=== PATIENT | female | born 1960 | race African-American/Black ===

== ENCOUNTER 2020-10-08 14:36 | Emergency (ER) | payer MEDICARE ==
[2020-10-08] MEDS ORDERED: Dextrose 50% Abboject 50 ML SYRINGE ONE (14:43)
[2020-10-08 15:09] LABS: #Eosinphils 0.1 thou/uL (0.0-0.7); #Lymphocytes 1.6 thou/uL (1.20-3.40); #Monocytes 0.7 thou/uL (0.11-0.59); #Neutrophils 8.2 thou/uL (1.40-6.50); %Basophils 0.2 % (0.0-1.0); %Eosinophils 0.8 % (0.0-10.0); %Lymphocytes 15.3 % (21.0-51.0); %Monocytes 6.2 % (0.0-10.0); %Neutrophils 77.5 % (42.0-75.0); Hemoglobin 11.4 g/dL (12.0-16.0); Mean Corpuscular HGB CONC 31.2 g/dL (32.0-36.0); Mean Corpuscular Hemoglobin 26.8 pg (27.0-31.0); Mean Platelet Volume 8.3 fL (7.4-10.4); Platelet Count 270 thou/uL (130-400); RBC Distribution Width 19.5 % (11.5-14.5); Red Blood Cell (RBC) Count 4.24 mill/uL (4.20-5.40); White Blood Cell (WBC) Count 10.6 thou/uL (4.8-10.8)
[2020-10-08 15:25] LABS: ALT (SGPT) 24 U/L (8-55); AST (SGOT) 29 U/L (5-34); Albumin 3.9 g/dL (3.4-4.8); Alkaline Phosphatase 75 U/L (40-110); Anion Gap 12 mmol/L (10-20); BUN (Urea Nitrogen) 25 mg/dL (9.8-20.1); Bilirubin, Total 0.5 mg/dL (0.2-1.2); Calc. Creatinine Clearance 0 mL/min (70-130); Calcium 9.5 mg/dL (7.8-10.44); Carbon Dioxide 32 mmol/L (23-31); Chloride 102 mmol/L (98-107); Globulin 3.4 g/dL (2.4-3.5); Glucose 195 mg/dL (80-115); Potassium 3.4 mmol/L (3.5-5.1); Protein, Total 7.3 g/dL (5.8-8.1); Sodium 143 mmol/L (136-145)
[2020-10-08] MEDS ORDERED: Morphine 4 MG/ML VIAL ONE (16:15)
[2020-10-08] MEDS ORDERED: Ondansetron PF 4 MG/2 ML Vial ONE (16:15)
[2020-10-08 16:40] LABS: Bilirubin Negative (Negative); Blood, Urine 1+ (Negative); Clarity Turbid (Clear); Glucose, Urine (Dipstick) 50 mg/dL (Negative); Ketone, Urine Negative (Negative); Leukocyte Negative Leu/uL (Negative); Nitrite Negative (Negative); Protein, Urine (Dipstick) 100 mg/dL (Neg-Trace); Specific Gravity, Urine 1.008 (1.002-1.036); Squamous Epithelial 0-3 HPF (0-3); Urobilinogen Normal mg/dL (Less than 2); WBC/HPF 0-3 HPF (0-3)
[2020-10-08 16:41] LABS: Bacteria/HPF Rare-Few HPF (None Seen)
== END 2020-10-08 17:49 | disposition home or self-care (01) ==
LOC: ERS 14:36
DX: E11.649 Type 2 diabetes mellitus with hypoglycemia without coma (principal); I11.0 Hypertensive heart disease with heart failure; I50.9 Heart failure, unspecified; E78.5 Hyperlipidemia, unspecified; Z87.891 Personal history of nicotine dependence; Z79.4 Long term (current) use of insulin; Z79.899 Other long term (current) drug therapy
CPT/HCPCS: 36416; 70450; 80053; 81003; 81015; 84443; 85025; 93005; 96374; 96375; J2270; J2405

== ENCOUNTER 2021-07-01 15:01 | Emergency (ER) | payer MEDICARE ==
[2021-07-01] MEDS ORDERED: traMADol HCl 50 MG TAB ONE (16:19)
== END 2021-07-01 18:00 | disposition home or self-care (01) ==
LOC: ERS 15:01
DX: R07.81 Pleurodynia (principal); I11.0 Hypertensive heart disease with heart failure; I50.9 Heart failure, unspecified; E11.9 Type 2 diabetes mellitus without complications; E78.5 Hyperlipidemia, unspecified; Z87.891 Personal history of nicotine dependence; Z79.899 Other long term (current) drug therapy
CPT/HCPCS: 36416

== ENCOUNTER 2022-02-11 20:51 | Inpatient (IN) | payer MEDICARE ==
[2022-02-11] MEDS ORDERED: Metoclopramide HCl 10 MG/2 ML VIAL ONE (21:53)
[2022-02-11] MEDS ORDERED: diphenhydrAMINE 25 MG CAP ONE (21:53)
[2022-02-11] MEDS ORDERED: diphenhydrAMINE 12.5 MG/5 ML UDCUP ONE (22:02)
[2022-02-11] MEDS ORDERED: diphenhydrAMINE 50 MG/ML VIAL ONE (22:03)
[2022-02-11 22:11] LABS: #Lymphocytes 2.1 thou/uL (1.20-3.40); #Monocytes 0.7 thou/uL (0.11-0.59); #Neutrophils 6.6 thou/uL (1.40-6.50); %Eosinophils 0.2 % (0.0-10.0); %Lymphocytes 22.4 % (21.0-51.0); %Monocytes 7.3 % (0.0-10.0); %Neutrophils 70.2 % (42.0-75.0); Hemoglobin 14.5 g/dL (12.0-16.0); Mean Corpuscular Hemoglobin 30.7 pg (27.0-31.0); Mean Platelet Volume 7.1 fL (7.4-10.4); Platelet Count 328 thou/uL (130-400); RBC Distribution Width 14.2 % (11.5-14.5); Red Blood Cell (RBC) Count 4.73 mill/uL (4.20-5.40); White Blood Cell (WBC) Count 9.4 thou/uL (4.8-10.8)
[2022-02-11 22:21] LABS: ALT (SGPT) 33 U/L (8-55); AST (SGOT) 43 U/L (5-34); Alkaline Phosphatase 99 U/L (40-110); Anion Gap 22 mmol/L (10-20); BUN (Urea Nitrogen) 65 mg/dL (9.8-20.1); Bilirubin, Total 0.7 mg/dL (0.2-1.2); Calc. Creatinine Clearance 0 mL/min (70-130); Calcium 9.7 mg/dL (7.8-10.44); Carbon Dioxide 27 mmol/L (23-31); Chloride 91 mmol/L (98-107); Estimated GFR 11; Globulin 3.1 g/dL (2.4-3.5); Glucose 278 mg/dL (80-115); Lipase 14 U/L (8-78); Potassium 3.7 mmol/L (3.5-5.1); Protein, Total 7.1 g/dL (5.8-8.1); Sodium 136 mmol/L (136-145)
[2022-02-11 22:45] LABS: CKMB 7.3 ng/mL (0-6.6)
[2022-02-11 23:22] LABS: SARS-CoV-2 NAA Rapid Test Not Detected (NotDetected)
[2022-02-11] MEDS ORDERED: Aspirin Chewable 81 MG TAB ONE ×2 (23:41→23:44)
[2022-02-12] MEDS ORDERED: Sodium Chloride 0.9% 1,000 ML IV SCH ×2 (00:30→02:30)
[2022-02-12 01:39] LABS: Troponin I 0.068 ng/mL (< 0.028)
[2022-02-12 04:38] LABS: Troponin I 0.084 ng/mL (< 0.028)
[2022-02-12 05:07] VITALS: BMI 50.5
[2022-02-12 07:13] LABS: Anion Gap 20 mmol/L (10-20); BUN (Urea Nitrogen) 64 mg/dL (9.8-20.1); Calc. Creatinine Clearance 29 mL/min (70-130); Calcium 9.3 mg/dL (7.8-10.44); Carbon Dioxide 25 mmol/L (23-31); Chloride 92 mmol/L (98-107); Estimated GFR 12; Glucose 424 mg/dL (80-115); Potassium 3.7 mmol/L (3.5-5.1); Sodium 133 mmol/L (136-145)
[2022-02-12] MEDS ORDERED: Dextrose 5% in Water 1,000 ML IV PRN (08:47)
[2022-02-12] MEDS ORDERED: HumaLOG 300 UNITS/3 ML VIAL SC PRN ×2 (08:47)
[2022-02-12] MEDS ORDERED: Dextrose 50% Abboject 50 ML SYRINGE SLOW IVP PRN (08:47)
[2022-02-12] MEDS ORDERED: Ondansetron PF 4 MG/2 ML Vial IVP PRN (08:52)
[2022-02-12] MEDS ORDERED: Senokot S 8.6-50 MG TAB PO PRN (08:52)
[2022-02-12] MEDS ORDERED: Nitroglycerin 0.4 MG TAB (25 Tab Bottle) SL PRN (08:55)
[2022-02-12] MEDS ORDERED: Pantoprazole 40 MG VIAL IVP SCH (09:00)
[2022-02-12 11:27] LABS: CKMB 6.5 ng/mL (0-6.6)
[2022-02-12 12:03] LABS: Magnesium 2.3 mg/dL (1.6-2.6)
[2022-02-12] MEDS: Sodium Chloride 0.9% 1,000 ML IV SCH (12:15)
[2022-02-12 12:44] LABS: Bacteria/HPF None Seen HPF (None Seen); Bilirubin Negative (Negative); Blood, Urine Negative (Negative); Clarity Clear (Clear); Glucose, Urine (Dipstick) Greater than 1000 mg/dL (Negative); Ketone, Urine Negative (Negative); Leukocyte Negative Leu/uL (Negative); Nitrite Negative (Negative); Protein, Urine (Dipstick) 20 mg/dL (Neg-Trace); RBC/HPF 0-3 HPF (0-3); Specific Gravity, Urine 1.009 (1.002-1.036); Squamous Epithelial 0-3 HPF (0-3); Urobilinogen Normal mg/dL (Less than 2); WBC/HPF 0-3 HPF (0-3)
[2022-02-12] MEDS ORDERED: HumaLOG 300 UNITS/3 ML VIAL SC ONE (13:10)
[2022-02-12] MEDS ORDERED: HumaLOG 300 UNITS/3 ML VIAL SC SCH (13:30)
[2022-02-12] MEDS: Isosorbide Dinitrate 20 MG TAB PO SCH ×2 (15:20→21:35)
[2022-02-12] MEDS ORDERED: Methocarbamol 500 MG TAB PO PRN (21:00)
[2022-02-12] MEDS ORDERED: Atorvastatin Calcium 40 MG TAB PO SCH (21:00)
[2022-02-12] MEDS ORDERED: Gabapentin 300 MG CAP PO SCH (21:00)
[2022-02-12] MEDS: Ondansetron ODT 4 MG TAB PO PRN (21:31)
[2022-02-12] MEDS: hydrALAZINE 25 MG TAB PO SCH (21:34)
[2022-02-12] MEDS: Carvedilol 25 MG TAB PO SCH (21:35)
[2022-02-13] MEDS: Sodium Chloride 0.9% 1,000 ML IV SCH (03:58)
[2022-02-13 04:10] LABS: #Basophils 0.1 thou/uL (0.0-0.2); #Lymphocytes 1.4 thou/uL (1.20-3.40); #Monocytes 0.6 thou/uL (0.11-0.59); #Neutrophils 4.7 thou/uL (1.40-6.50); %Basophils 0.9 % (0.0-1.0); %Eosinophils 0.4 % (0.0-10.0); %Lymphocytes 20.4 % (21.0-51.0); %Neutrophils 69.3 % (42.0-75.0); Hemoglobin 13.7 g/dL (12.0-16.0); Mean Corpuscular HGB CONC 33.4 g/dL (32.0-36.0); Mean Corpuscular Hemoglobin 31.1 pg (27.0-31.0); Mean Corpuscular Volume 93.1 fL (78.0-98.0); Mean Platelet Volume 6.8 fL (7.4-10.4); Platelet Count 293 thou/uL (130-400); White Blood Cell (WBC) Count 6.8 thou/uL (4.8-10.8)
[2022-02-13 04:33] LABS: Anion Gap 16 mmol/L (10-20); BUN (Urea Nitrogen) 50 mg/dL (9.8-20.1); Calc. Creatinine Clearance 46 mL/min (70-130); Calcium 9.2 mg/dL (7.8-10.44); Carbon Dioxide 27 mmol/L (23-31); Cardiac Risk 5.6 (Less than 4.5); Chloride 98 mmol/L (98-107); Cholesterol 184 mg/dl (< 200 Desired); Estimated GFR 21; Glucose 318 mg/dL (80-115); HDL Cholesterol 33 mg/dL (>60 Neg Risk); LDL Cholesterol, Calculated 130 mg/dL; Potassium 3.8 mmol/L (3.5-5.1); Sodium 137 mmol/L (136-145); Triglycerides 105 mg/dL (Less than 150)
[2022-02-13] MEDS: Ondansetron ODT 4 MG TAB PO PRN (06:19)
[2022-02-13] MEDS ORDERED: Ezetimibe 10 MG TAB PO SCH (09:00)
[2022-02-13] MEDS ORDERED: Amlodipine 10 MG TAB PO SCH (09:00)
[2022-02-13] MEDS ORDERED: Amlodipine 5 MG TAB PO SCH ×2 (09:00)
[2022-02-13] MEDS ORDERED: HumaLOG 300 UNITS/3 ML VIAL SC SCH (09:00)
[2022-02-13] MEDS ORDERED: Clopidogrel Bisulfate 75 MG TAB PO SCH (09:00)
[2022-02-13] MEDS ORDERED: cloNIDine 0.1 MG TAB PO SCH (09:00)
[2022-02-13] MEDS ORDERED: Metolazone 5 MG TAB PO SCH (09:00)
[2022-02-13] MEDS: Carvedilol 25 MG TAB PO SCH (09:29)
[2022-02-13] MEDS: Isosorbide Dinitrate 20 MG TAB PO SCH (09:29)
[2022-02-13] MEDS: hydrALAZINE 25 MG TAB PO SCH (09:36)
[2022-02-13] MEDS ORDERED: Promethazine 25 MG TAB PO SCH (09:56)
[2022-02-13] MEDS ORDERED: diphenhydrAMINE 25 MG CAP PO SCH (11:22)
[2022-02-13 11:56] VITALS: BP 167/78; TEMP 98.6
== END 2022-02-13 15:10 | disposition home or self-care (01) | DRG 682 ==
LOC: ERS 20:51 → 2NO 02-12 02:23
PROVIDERS: ADMIT Nurse Practitioner Acute Care; ATTEND Nurse Practitioner Acute Care
DX: N17.9 Acute kidney failure, unspecified (principal); I21.A1 Myocardial infarction type 2; I13.0 Hypertensive heart and chronic kidney disease with heart failure and stage 1 through stage 4 chronic kidney disease, or unspecified chronic kidney disease; E87.1 Hypo-osmolality and hyponatremia; Z68.43 Body mass index [BMI] 50.0-59.9, adult; Z20.822 Contact with and (suspected) exposure to COVID-19; I50.9 Heart failure, unspecified; E86.0 Dehydration; N18.4 Chronic kidney disease, stage 4 (severe); E78.00 Pure hypercholesterolemia, unspecified; I25.10 Atherosclerotic heart disease of native coronary artery without angina pectoris; E11.22 Type 2 diabetes mellitus with diabetic chronic kidney disease; E78.5 Hyperlipidemia, unspecified; F41.9 Anxiety disorder, unspecified; K21.9 Gastro-esophageal reflux disease without esophagitis; E66.01 Morbid (severe) obesity due to excess calories; Z95.1 Presence of aortocoronary bypass graft; Z90.710 Acquired absence of both cervix and uterus; Z28.311 Partially vaccinated for COVID-19; Z87.891 Personal history of nicotine dependence; Z79.899 Other long term (current) drug therapy; Z88.8 Allergy status to other drugs, medicaments and biological substances; Z79.4 Long term (current) use of insulin
CPT/HCPCS: 36415; 36416; 71045; 74176; 80048; 80053; 80061; 81001; 82550; 82553; 83036; 83690; 83735; 83880; 84484; 85025; 93005; 93306; J1200; J1815; J2765; J7050; Q0162; Q0163; Q0169; U0002

== ENCOUNTER 2022-06-10 10:29 | Inpatient (IN) | payer MEDICARE ==
[2022-06-10] MEDS ORDERED: Morphine 4 MG/ML VIAL ONE (11:54)
[2022-06-10] MEDS ORDERED: Ondansetron PF 4 MG/2 ML Vial ONE (11:54)
[2022-06-10 12:51] LABS: Bilirubin Negative (Negative); Blood, Urine Negative (Negative); Clarity Clear (Clear); Glucose, Urine (Dipstick) Normal (Negative); Ketone, Urine Negative (Negative); Leukocyte Negative Leu/uL (Negative); Nitrite Negative (Negative); Protein, Urine (Dipstick) Negative (Neg-Trace); Urobilinogen Normal mg/dL (Less than 2); pH, Urine 6.5 (5.0-9.0)
[2022-06-10 13:05] LABS: #Lymphocytes 1.3 thou/uL (1.20-3.40); #Monocytes 0.5 thou/uL (0.11-0.59); #Neutrophils 2.5 thou/uL (1.40-6.50); %Basophils 0.2 % (0.0-1.0); %Eosinophils 0.6 % (0.0-10.0); %Lymphocytes 30.5 % (21.0-51.0); %Monocytes 11.6 % (0.0-10.0); %Neutrophils 57.2 % (42.0-75.0); Hemoglobin 13.9 g/dL (12.0-16.0); Mean Corpuscular HGB CONC 32.5 g/dL (32.0-36.0); Mean Corpuscular Hemoglobin 29.9 pg (27.0-31.0); Mean Corpuscular Volume 92.2 fl (78.0-98.0); Platelet Count 244 10x3/uL (130-400); RBC Distribution Width 13.1 % (11.5-14.5); Red Blood Cell (RBC) Count 4.64 mill/uL (4.20-5.40); White Blood Cell (WBC) Count 4.4 10x3/uL (4.8-10.8)
[2022-06-10 13:19] LABS: SARS-CoV-2 NAA Rapid Test Not Detected (NotDetected)
[2022-06-10 13:26] LABS: ALT (SGPT) 15 U/L (8-55); AST (SGOT) 25 U/L (5-34); Albumin 3.7 g/dL (3.4-4.8); Alkaline Phosphatase 93 U/L (40-110); Anion Gap 13 mmol/L (10-20); BUN (Urea Nitrogen) 49 mg/dL (9.8-20.1); Bilirubin, Total 0.4 mg/dL (0.2-1.2); Calc. Creatinine Clearance 0 mL/min (70-130); Calcium 9.4 mg/dL (7.8-10.44); Carbon Dioxide 31 mmol/L (23-31); Chloride 96 mmol/L (98-107); Estimated GFR 14; Globulin 3.4 g/dL (2.4-3.5); Glucose 163 mg/dL (80-115); Lipase 9 U/L (8-78); Magnesium 2.1 mg/dL (1.6-2.6); Potassium 3.7 mmol/L (3.5-5.1); Protein, Total 7.1 g/dL (5.8-8.1); Sodium 136 mmol/L (136-145)
[2022-06-10] MEDS ORDERED: Ondansetron PF 4 MG/2 ML Vial IVP PRN (14:37)
[2022-06-10] MEDS ORDERED: Azithromycin 500 MG in Sodium Chloride 0.9% 250 ML 250 ML IVPB SCH (15:00)
[2022-06-10] MEDS ORDERED: hydrALAZINE 25 MG TAB PO SCH (15:30)
[2022-06-10] MEDS: Isosorbide Dinitrate 20 MG TAB PO SCH ×2 (16:27→20:03)
[2022-06-10] MEDS: Heparin 5,000 UNITS/ML VIAL SC SCH ×2 (16:28→20:03)
[2022-06-10 16:44] VITALS: BMI 47.7
[2022-06-10 16:58] LABS: Troponin I 0.061 ng/mL (< 0.028)
[2022-06-10] MEDS: methylPREDNISolone Sod Succ 40 MG VIAL IVP SCH (18:11)
[2022-06-10] MEDS: Acetaminophen 325 MG TAB PO PRN (20:02)
[2022-06-10] MEDS: Carvedilol 25 MG TAB PO SCH (20:03)
[2022-06-10] MEDS: Atorvastatin Calcium 40 MG TAB PO SCH (20:03)
[2022-06-10] MEDS: hydrALAZINE 25 MG TAB PO SCH (20:03)
[2022-06-10 20:13] LABS: Troponin I 0.107 ng/mL (< 0.028)
[2022-06-10] MEDS ORDERED: Sodium Chloride 0.65% Nasal 44 ML BOT EA NARE PRN (21:17)
[2022-06-11] MEDS: methylPREDNISolone Sod Succ 40 MG VIAL IVP SCH ×4 (00:48→18:26)
[2022-06-11 06:22] LABS: Anion Gap 18 mmol/L (10-20); BUN (Urea Nitrogen) 53 mg/dL (9.8-20.1); Calc. Creatinine Clearance 30 mL/min (70-130); Calcium 9.2 mg/dL (7.8-10.44); Carbon Dioxide 24 mmol/L (23-31); Chloride 94 mmol/L (98-107); Estimated GFR 14; Glucose 267 mg/dL (80-115); Magnesium 2.1 mg/dL (1.6-2.6); Potassium 4.3 mmol/L (3.5-5.1); Sodium 132 mmol/L (136-145)
[2022-06-11] MEDS: Amlodipine 10 MG TAB PO SCH (08:47)
[2022-06-11] MEDS: cloNIDine 0.1 MG TAB PO SCH (08:48)
[2022-06-11] MEDS: Carvedilol 25 MG TAB PO SCH ×2 (08:48→21:57)
[2022-06-11] MEDS: Ezetimibe 10 MG TAB PO SCH (08:49)
[2022-06-11] MEDS: guaiFENesin ER 600 MG TAB PO SCH ×2 (08:49→21:57)
[2022-06-11] MEDS: Clopidogrel Bisulfate 75 MG TAB PO SCH (08:49)
[2022-06-11] MEDS: Isosorbide Dinitrate 20 MG TAB PO SCH ×3 (08:50→21:55)
[2022-06-11] MEDS: Heparin 5,000 UNITS/ML VIAL SC SCH ×3 (08:50→21:57)
[2022-06-11] MEDS: hydrALAZINE 25 MG TAB PO SCH ×3 (08:50→21:56)
[2022-06-11] MEDS ORDERED: FLU VACC QS2022-23(6MOS UP)/PF 60 MCG/0.5 ML SYRINGE IM ONE (09:00)
[2022-06-11] MEDS: Acetaminophen 325 MG TAB PO PRN (09:41)
[2022-06-11] MEDS: cefTRIAXone\\ROCEPHIN 1 GM in Sodium Chloride 0.9% 100 ML IVPB SCH (12:26)
[2022-06-11 17:00] LABS: Legionella Urinary Ag Negative (Negative); Strep pneumo Urine Ag NEGATIVE (NEGATIVE)
[2022-06-11] MEDS ORDERED: Methocarbamol 500 MG TAB PO PRN (21:00)
[2022-06-11] MEDS: Atorvastatin Calcium 40 MG TAB PO SCH (21:57)
[2022-06-12] MEDS: methylPREDNISolone Sod Succ 40 MG VIAL IVP SCH ×3 (00:41→12:33)
[2022-06-12] MEDS: Acetaminophen 325 MG TAB PO PRN ×2 (03:52→10:20)
[2022-06-12 08:31] LABS: #Lymphocytes 1.1 thou/uL (1.20-3.40); #Monocytes 0.2 thou/uL (0.11-0.59); #Neutrophils 6.1 thou/uL (1.40-6.50); %Eosinophils 0.1 % (0.0-10.0); %Lymphocytes 14.2 % (21.0-51.0); %Monocytes 3.2 % (0.0-10.0); %Neutrophils 82.5 % (42.0-75.0); Hemoglobin 12.8 g/dL (12.0-16.0); Mean Corpuscular HGB CONC 32.1 g/dL (32.0-36.0); Mean Corpuscular Hemoglobin 30.2 pg (27.0-31.0); Mean Corpuscular Volume 94.2 fl (78.0-98.0); Mean Platelet Volume 6.9 fL (7.4-10.4); Platelet Count 252 10x3/uL (130-400); RBC Distribution Width 12.7 % (11.5-14.5); Red Blood Cell (RBC) Count 4.24 mill/uL (4.20-5.40); White Blood Cell (WBC) Count 7.4 10x3/uL (4.8-10.8)
[2022-06-12 08:53] LABS: Anion Gap 14 mmol/L (10-20); BUN (Urea Nitrogen) 53 mg/dL (9.8-20.1); CRP (Inflammatory) Less than 0.50 mg/dL (= or < 0.5); Calc. Creatinine Clearance 36 mL/min (70-130); Carbon Dioxide 26 mmol/L (23-31); Chloride 90 mmol/L (98-107); Estimated GFR 17; Potassium 4.4 mmol/L (3.5-5.1); Sodium 126 mmol/L (136-145)
[2022-06-12 09:03] LABS: Glucose 596 mg/dL (80-115)
[2022-06-12] MEDS ORDERED: Dextrose 50% Abboject 50 ML SYRINGE SLOW IVP PRN (09:11)
[2022-06-12] MEDS ORDERED: Dextrose 5% in Water 1,000 ML IV PRN (09:11)
[2022-06-12] MEDS ORDERED: HumaLOG 300 UNITS/3 ML VIAL SC PRN (09:11)
[2022-06-12] MEDS: Amlodipine 10 MG TAB PO SCH (09:19)
[2022-06-12] MEDS: Carvedilol 25 MG TAB PO SCH (09:20)
[2022-06-12] MEDS: Clopidogrel Bisulfate 75 MG TAB PO SCH (09:20)
[2022-06-12] MEDS: Ezetimibe 10 MG TAB PO SCH (09:20)
[2022-06-12] MEDS: guaiFENesin ER 600 MG TAB PO SCH (09:20)
[2022-06-12] MEDS: Isosorbide Dinitrate 20 MG TAB PO SCH (09:20)
[2022-06-12] MEDS: cloNIDine 0.1 MG TAB PO SCH (09:20)
[2022-06-12] MEDS: hydrALAZINE 25 MG TAB PO SCH (09:20)
[2022-06-12] MEDS: Heparin 5,000 UNITS/ML VIAL SC SCH (09:22)
[2022-06-12] MEDS ORDERED: Insulin Glargine 30 UNITS/0.3 ML VIAL SC SCH ×2 (09:30→21:00)
[2022-06-12] MEDS: HumaLOG 300 UNITS/3 ML VIAL SC PRN ×2 (10:15→12:45)
[2022-06-12] MEDS: cefTRIAXone\\ROCEPHIN 1 GM in Sodium Chloride 0.9% 100 ML IVPB SCH (11:40)
[2022-06-12 12:05] VITALS: BP 177/69; TEMP 97.6
[2022-06-12 12:39] LABS: Glucose 601 mg/dL (80-115)
== END 2022-06-12 15:56 | disposition home or self-care (01) | DRG 189 ==
LOC: ERS 10:29 → 2SW 14:18 → OBSVTOIN 06-12 09:17
PROVIDERS: ADMIT Internal Medicine; ATTEND Family Medicine
DX: J96.01 Acute respiratory failure with hypoxia (principal); N17.9 Acute kidney failure, unspecified; N18.4 Chronic kidney disease, stage 4 (severe); Z68.42 Body mass index [BMI] 45.0-49.9, adult; J20.9 Acute bronchitis, unspecified; I25.10 Atherosclerotic heart disease of native coronary artery without angina pectoris; I12.9 Hypertensive chronic kidney disease with stage 1 through stage 4 chronic kidney disease, or unspecified chronic kidney disease; N18.30 Chronic kidney disease, stage 3 unspecified; E11.22 Type 2 diabetes mellitus with diabetic chronic kidney disease; E78.5 Hyperlipidemia, unspecified; E11.65 Type 2 diabetes mellitus with hyperglycemia; Z20.822 Contact with and (suspected) exposure to COVID-19; F41.9 Anxiety disorder, unspecified; E66.01 Morbid (severe) obesity due to excess calories; Z98.890 Other specified postprocedural states; Z90.710 Acquired absence of both cervix and uterus; Z87.891 Personal history of nicotine dependence; Z95.1 Presence of aortocoronary bypass graft; Z88.8 Allergy status to other drugs, medicaments and biological substances; Z79.4 Long term (current) use of insulin; Z79.899 Other long term (current) drug therapy
CPT/HCPCS: 36415; 36416; 71045; 78451; 80048; 80053; 81003; 82553; 83605; 83690; 83735; 83880; 84145; 84484; 85025; 86140; 87449; 87899; 90471; 90686; 90732; 93005; 94640; 96365; 96366; 96372; 96374; 96375; 96376; A9540; G0008; G0009; G0378; J0456; J0696; J1644; J1815; J1956; J2270; J2405; J2920; J3490; J7050; J7620

== ENCOUNTER 2022-06-26 18:06 | Emergency (ER) | payer MEDICARE ==
[2022-06-26] MEDS ORDERED: Magnesium 2 GM/50 ML BAG (IN WATER) ONE (18:35)
[2022-06-26 18:58] LABS: #Basophils 0.1 thou/uL (0.0-0.2); #Lymphocytes 2.3 thou/uL (1.20-3.40); #Monocytes 0.6 thou/uL (0.11-0.59); #Neutrophils 3.6 thou/uL (1.40-6.50); %Basophils 2.1 % (0.0-1.0); %Eosinophils 0.7 % (0.0-10.0); %Lymphocytes 35.3 % (21.0-51.0); %Monocytes 8.3 % (0.0-10.0); %Neutrophils 53.7 % (42.0-75.0); Hemoglobin 14.6 g/dL (12.0-16.0); Mean Corpuscular HGB CONC 34.9 g/dL (32.0-36.0); Mean Corpuscular Hemoglobin 31.2 pg (27.0-31.0); Mean Corpuscular Volume 89.4 fl (78.0-98.0); Mean Platelet Volume 7.4 fL (7.4-10.4); Platelet Count 257 10x3/uL (130-400); RBC Distribution Width 13.5 % (11.5-14.5); Red Blood Cell (RBC) Count 4.67 mill/uL (4.20-5.40); White Blood Cell (WBC) Count 6.6 10x3/uL (4.8-10.8)
[2022-06-26 19:18] LABS: ALT (SGPT) 18 U/L (8-55); AST (SGOT) 21 U/L (5-34); Albumin 3.7 g/dL (3.4-4.8); Alkaline Phosphatase 83 U/L (40-110); Anion Gap 18 mmol/L (10-20); BUN (Urea Nitrogen) 71 mg/dL (9.8-20.1); Bilirubin, Total 0.4 mg/dL (0.2-1.2); CK (CPK) 175 U/L (29-168); Calc. Creatinine Clearance 0 mL/min (70-130); Calcium 9.7 mg/dL (7.8-10.44); Carbon Dioxide 28 mmol/L (23-31); Chloride 89 mmol/L (98-107); Estimated GFR 12; Globulin 3.2 g/dL (2.4-3.5); Glucose 258 mg/dL (80-115); Magnesium 1.8 mg/dL (1.6-2.6); Potassium 3.5 mmol/L (3.5-5.1); Protein, Total 6.9 g/dL (5.8-8.1); Sodium 131 mmol/L (136-145)
[2022-06-26 19:40] LABS: CKMB 13.2 ng/mL (0-6.6)
[2022-06-26] MEDS ORDERED: Aspirin 325 MG TAB ONE (20:43)
[2022-06-26 21:38] LABS: Anion Gap 17 mmol/L (10-20); BUN (Urea Nitrogen) 70 mg/dL (9.8-20.1); Calc. Creatinine Clearance 0 mL/min (70-130); Calcium 9.9 mg/dL (7.8-10.44); Carbon Dioxide 31 mmol/L (23-31); Chloride 86 mmol/L (98-107); Estimated GFR 12; Glucose 155 mg/dL (80-115); Potassium 3.5 mmol/L (3.5-5.1); Sodium 130 mmol/L (136-145)
[2022-06-26 22:47] LABS: Bilirubin Negative (Negative); Blood, Urine Negative (Negative); Clarity Clear (Clear); Glucose, Urine (Dipstick) 300 mg/dL (Negative); Ketone, Urine Negative (Negative); Leukocyte Negative Leu/uL (Negative); Nitrite Negative (Negative); Protein, Urine (Dipstick) 20 mg/dL (Neg-Trace); Urobilinogen Normal mg/dL (Less than 2)
[2022-06-27 00:16] LABS: CKMB 11.3 ng/mL (0-6.6)
== END 2022-06-27 00:30 | disposition home or self-care (01) ==
LOC: ERS 18:06
DX: N17.9 Acute kidney failure, unspecified (principal); M62.838 Other muscle spasm; E11.9 Type 2 diabetes mellitus without complications; E78.5 Hyperlipidemia, unspecified; I10 Essential (primary) hypertension
CPT/HCPCS: 36415; 71045; 80053; 81003; 82550; 82553; 83735; 83880; 84484; 85025; 93005; 96361; 96374; J3475

== ENCOUNTER 2022-08-13 15:07 | Emergency (ER) | payer MEDICARE ==
[2022-08-13 16:01] LABS: #Basophils 0.1 thou/uL (0.0-0.2); #Eosinphils 0.1 thou/uL (0.0-0.7); #Lymphocytes 2.4 thou/uL (1.20-3.40); #Monocytes 0.9 thou/uL (0.11-0.59); #Neutrophils 5.6 thou/uL (1.40-6.50); %Basophils 1.1 % (0.0-1.0); %Eosinophils 1.4 % (0.0-10.0); %Lymphocytes 26.2 % (21.0-51.0); %Monocytes 9.5 % (0.0-10.0); %Neutrophils 61.8 % (42.0-75.0); Hemoglobin 11.8 g/dL (12.0-16.0); Mean Corpuscular HGB CONC 33.6 g/dL (32.0-36.0); Mean Corpuscular Hemoglobin 30.8 pg (27.0-31.0); Mean Corpuscular Volume 91.9 fl (78.0-98.0); Mean Platelet Volume 6.9 fL (7.4-10.4); Platelet Count 314 10x3/uL (130-400); RBC Distribution Width 14.1 % (11.5-14.5); Red Blood Cell (RBC) Count 3.83 mill/uL (4.20-5.40); White Blood Cell (WBC) Count 9.1 10x3/uL (4.8-10.8)
[2022-08-13 16:23] LABS: ALT (SGPT) 10 U/L (8-55); AST (SGOT) 19 U/L (5-34); Albumin 3.5 g/dL (3.4-4.8); Alkaline Phosphatase 101 U/L (40-110); Anion Gap 16 mmol/L (10-20); BUN (Urea Nitrogen) 26 mg/dL (9.8-20.1); Bilirubin, Total 0.5 mg/dL (0.2-1.2); Calc. Creatinine Clearance 0 mL/min (70-130); Carbon Dioxide 28 mmol/L (23-31); Chloride 102 mmol/L (98-107); Estimated GFR 30; Globulin 3.6 g/dL (2.4-3.5); Glucose 104 mg/dL (80-115); Potassium 4.3 mmol/L (3.5-5.1); Protein, Total 7.1 g/dL (5.8-8.1); Sodium 142 mmol/L (136-145)
[2022-08-13] MEDS ORDERED: Aspirin Chewable 81 MG TAB ONE (16:27)
[2022-08-13 16:46] LABS: CKMB 2.3 ng/mL (0-6.6)
== END 2022-08-13 18:03 | disposition home or self-care (01) ==
LOC: ERS 15:07
DX: R07.9 Chest pain, unspecified (principal); I10 Essential (primary) hypertension; R06.02 Shortness of breath; E11.9 Type 2 diabetes mellitus without complications; E78.5 Hyperlipidemia, unspecified; Z87.891 Personal history of nicotine dependence; Z79.899 Other long term (current) drug therapy
CPT/HCPCS: 71045; 80053; 82553; 83880; 84484; 85025; 93005

== ENCOUNTER 2022-10-22 21:41 | Inpatient (IN) | payer MEDICARE ==
[2022-10-22 22:42] LABS: #Monocytes 0.5 thou/uL (0.11-0.59); #Neutrophils 4.2 thou/uL (1.40-6.50); %Eosinophils 0.3 % (0.0-10.0); %Lymphocytes 17.4 % (21.0-51.0); %Monocytes 8.2 % (0.0-10.0); %Neutrophils 74.1 % (42.0-75.0); Hemoglobin 13.2 g/dL (12.0-16.0); Mean Corpuscular HGB CONC 33.6 g/dL (32.0-36.0); Mean Corpuscular Hemoglobin 29.8 pg (27.0-31.0); Mean Corpuscular Volume 88.8 fl (78.0-98.0); Mean Platelet Volume 7.6 fL (7.4-10.4); Platelet Count 300 10x3/uL (130-400); RBC Distribution Width 13.6 % (11.5-14.5); Red Blood Cell (RBC) Count 4.44 mill/uL (4.20-5.40); White Blood Cell (WBC) Count 5.6 10x3/uL (4.8-10.8)
[2022-10-22] MEDS ORDERED: Ondansetron PF 4 MG/2 ML Vial ONE (22:46)
[2022-10-22] MEDS ORDERED: Morphine 4 MG/ML VIAL ONE (22:46)
[2022-10-22 23:05] LABS: ALT (SGPT) 29 U/L (8-55); AST (SGOT) 22 U/L (5-34); Albumin 3.2 g/dL (3.4-4.8); Alkaline Phosphatase 85 U/L (40-110); Anion Gap 13 mmol/L (10-20); BUN (Urea Nitrogen) 24 mg/dL (9.8-20.1); Bilirubin, Total 0.6 mg/dL (0.2-1.2); Calc. Creatinine Clearance 0 mL/min (70-130); Calcium 8.9 mg/dL (7.8-10.44); Carbon Dioxide 27 mmol/L (23-31); Chloride 97 mmol/L (98-107); Estimated GFR 24; Globulin 2.9 g/dL (2.4-3.5); Lipase 38 U/L (8-78); Potassium 3.7 mmol/L (3.5-5.1); Protein, Total 6.1 g/dL (5.8-8.1); Sodium 133 mmol/L (136-145)
[2022-10-22 23:08] LABS: Glucose 451 mg/dL (80-115)
[2022-10-22 23:26] LABS: CKMB 7.1 ng/mL (0-6.6)
[2022-10-22] MEDS ORDERED: Aspirin 81 mg Enteric Coated Tablet ONE (23:31)
[2022-10-22] MEDS ORDERED: Aspirin Chewable 81 MG TAB ONE ×2 (23:33)
[2022-10-23 00:02] LABS: Bacteria/HPF None Seen HPF (None Seen); Bilirubin Negative (Negative); Blood, Urine Negative (Negative); Clarity Clear (Clear); Glucose, Urine (Dipstick) Greater than 1000 mg/dL (Negative); Ketone, Urine Negative (Negative); Leukocyte Negative Leu/uL (Negative); Nitrite Negative (Negative); Protein, Urine (Dipstick) 200 mg/dL (Neg-Trace); Specific Gravity, Urine 1.022 (1.002-1.036); Squamous Epithelial 0-3 HPF (0-3); Urobilinogen Normal mg/dL (Less than 2); WBC/HPF 0-3 HPF (0-3)
[2022-10-23] MEDS ORDERED: Heparin 10,000 UNITS/ 10 ML VIAL ONE (00:19)
[2022-10-23] MEDS ORDERED: cefTRIAXone (ROCEPHIN) 2 GM VIAL ONE (00:24)
[2022-10-23] MEDS ORDERED: Furosemide 40 MG/4 ML VIAL ONE (00:24)
[2022-10-23] MEDS ORDERED: cefTRIAXone (ROCEPHIN) 1 GM VIAL ONE (00:25)
[2022-10-23] MEDS ORDERED: Senokot S 8.6-50 MG TAB PO PRN (00:36)
[2022-10-23] MEDS ORDERED: Ondansetron ODT 4 MG TAB PO PRN (00:36)
[2022-10-23] MEDS ORDERED: Insulin Regular 300 UNITS/3 ML VIAL SC SCH (00:45)
[2022-10-23] MEDS ORDERED: Gabapentin 300 MG CAP PO SCH (00:45)
[2022-10-23] MEDS ORDERED: Dextrose 50% Abboject 50 ML SYRINGE SLOW IVP PRN (00:54)
[2022-10-23] MEDS ORDERED: Dextrose 5% in Water 1,000 ML IV PRN (00:54)
[2022-10-23] MEDS ORDERED: Heparin 25,000 units/D5W 500 ML ONE (00:59)
[2022-10-23] MEDS ORDERED: Nitroglycerin 2% Ointment 1 INCH/1 GM Packet TOP SCH (01:15)
[2022-10-23 03:20] VITALS: BMI 50.0
[2022-10-23] MEDS: HumaLOG 300 UNITS/3 ML VIAL SC PRN ×3 (03:56→23:51)
[2022-10-23 04:15] LABS: Hemoglobin A1c 8.2 % (4.0-6.0)
[2022-10-23 04:30] LABS: Troponin I 0.135 ng/mL (< 0.028)
[2022-10-23] MEDS: Cephalexin 250 MG CAP PO SCH ×4 (06:41→23:51)
[2022-10-23] MEDS: Furosemide 40 MG/4 ML VIAL SLOW IVP SCH ×2 (06:41→14:37)
[2022-10-23] MEDS ORDERED: Isosorbide Dinitrate 20 MG TAB PO SCH ×2 (07:15→09:00)
[2022-10-23] MEDS ORDERED: hydrALAZINE 25 MG TAB PO SCH ×2 (07:15→09:00)
[2022-10-23 08:27] LABS: #Lymphocytes 1.1 thou/uL (1.20-3.40); #Monocytes 0.5 thou/uL (0.11-0.59); #Neutrophils 3.6 thou/uL (1.40-6.50); %Basophils 0.8 % (0.0-1.0); %Eosinophils 0.8 % (0.0-10.0); %Lymphocytes 20.6 % (21.0-51.0); %Monocytes 10.1 % (0.0-10.0); %Neutrophils 67.8 % (42.0-75.0); Anion Gap 12 mmol/L (10-20); BUN (Urea Nitrogen) 25 mg/dL (9.8-20.1); BUN/Creatinine Ratio 11.26; Calc. Creatinine Clearance 51 mL/min (70-130); Calcium 8.7 mg/dL (7.8-10.44); Carbon Dioxide 29 mmol/L (23-31); Chloride 100 mmol/L (98-107); Estimated GFR 24; Glucose 147 mg/dL (80-115); Hemoglobin 13.3 g/dL (12.0-16.0); Mean Corpuscular Hemoglobin 30.3 pg (27.0-31.0); Mean Corpuscular Volume 89.1 fl (78.0-98.0); Mean Platelet Volume 7.6 fL (7.4-10.4); Platelet Count 293 10x3/uL (130-400); Potassium 3.5 mmol/L (3.5-5.1); RBC Distribution Width 13.5 % (11.5-14.5); Red Blood Cell (RBC) Count 4.39 mill/uL (4.20-5.40); Sodium 137 mmol/L (136-145); White Blood Cell (WBC) Count 5.4 10x3/uL (4.8-10.8)
[2022-10-23 08:33] LABS: Troponin I 0.155 ng/mL (< 0.028)
[2022-10-23] MEDS: Heparin 5,000 UNITS/ML VIAL SC SCH ×3 (08:40→21:14)
[2022-10-23] MEDS: Amlodipine 10 MG TAB PO SCH (08:41)
[2022-10-23] MEDS: Famotidine 20 MG TAB PO SCH (08:41)
[2022-10-23] MEDS: Ezetimibe 10 MG TAB PO SCH (08:41)
[2022-10-23] MEDS: Carvedilol 25 MG TAB PO SCH ×2 (08:41→21:11)
[2022-10-23] MEDS: hydrALAZINE 25 MG TAB PO SCH ×2 (14:37→21:20)
[2022-10-23] MEDS: Isosorbide Dinitrate 20 MG TAB PO SCH ×2 (14:38→21:20)
[2022-10-23] MEDS ORDERED: Potassium Phosphate 30 MMOL in Sodium Chloride 0.9% 250 ML 250 ML IVPB SCH (14:45)
[2022-10-23 17:48] LABS: Creatinine, Urine 118.69 mg/dL (47-110)
[2022-10-23] MEDS: Atorvastatin Calcium 40 MG TAB PO SCH (21:11)
[2022-10-23] MEDS: Gabapentin 300 MG CAP PO SCH (21:14)
[2022-10-23] MEDS: Acetaminophen 325 MG TAB PO PRN (23:56)
[2022-10-24] MEDS: Nitroglycerin 2% Ointment 1 INCH/1 GM Packet TOP PRN (00:40)
[2022-10-24 01:36] LABS: Troponin I 0.284 ng/mL (< 0.028)
[2022-10-24] MEDS: hydrALAZINE 25 MG TAB PO SCH ×3 (05:53→20:32)
[2022-10-24] MEDS: Cephalexin 250 MG CAP PO SCH ×4 (05:53→23:49)
[2022-10-24] MEDS: Furosemide 40 MG/4 ML VIAL SLOW IVP SCH (05:53)
[2022-10-24] MEDS: Isosorbide Dinitrate 20 MG TAB PO SCH ×3 (05:55→20:33)
[2022-10-24] MEDS: HumaLOG 300 UNITS/3 ML VIAL SC PRN ×4 (06:33→20:34)
[2022-10-24] MEDS ORDERED: Nitroglycerin 2% Ointment 1 INCH/1 GM Packet TOP SCH (09:00)
[2022-10-24] MEDS: Ezetimibe 10 MG TAB PO SCH (09:22)
[2022-10-24] MEDS: Amlodipine 10 MG TAB PO SCH (09:22)
[2022-10-24] MEDS: Famotidine 20 MG TAB PO SCH (09:23)
[2022-10-24] MEDS: Heparin 5,000 UNITS/ML VIAL SC SCH ×3 (09:23→20:34)
[2022-10-24] MEDS: Carvedilol 25 MG TAB PO SCH ×2 (09:28→20:30)
[2022-10-24 09:43] LABS: Anion Gap 16 mmol/L (10-20); BUN (Urea Nitrogen) 31 mg/dL (9.8-20.1); Calc. Creatinine Clearance 39 mL/min (70-130); Calcium 8.5 mg/dL (7.8-10.44); Carbon Dioxide 21 mmol/L (23-31); Chloride 101 mmol/L (98-107); Estimated GFR 17; Glucose 308 mg/dL (80-115); Phosphorus 3.6 mg/dL (2.3-4.7); Potassium 3.9 mmol/L (3.5-5.1); Sodium 134 mmol/L (136-145)
[2022-10-24 09:46] LABS: Troponin I 0.369 ng/mL (< 0.028)
[2022-10-24 12:32] LABS: Troponin I 0.363 ng/mL (< 0.028)
[2022-10-24] MEDS: Sodium Bicarbonate Tab 325 MG TAB PO SCH ×2 (17:07→20:32)
[2022-10-24] MEDS: Atorvastatin Calcium 40 MG TAB PO SCH (20:29)
[2022-10-24] MEDS: Gabapentin 300 MG CAP PO SCH (20:31)
[2022-10-25] MEDS: Cephalexin 250 MG CAP PO SCH ×4 (05:44→23:59)
[2022-10-25] MEDS: hydrALAZINE 25 MG TAB PO SCH ×3 (05:44→21:02)
[2022-10-25] MEDS: Isosorbide Dinitrate 20 MG TAB PO SCH ×3 (05:44→21:02)
[2022-10-25] MEDS: HumaLOG 300 UNITS/3 ML VIAL SC PRN ×3 (05:45→21:02)
[2022-10-25] MEDS ORDERED: Insulin Glargine 30 UNITS/0.3 ML VIAL SC SCH (09:00)
[2022-10-25] MEDS: Ezetimibe 10 MG TAB PO SCH (09:18)
[2022-10-25] MEDS: Carvedilol 25 MG TAB PO SCH ×2 (09:19→21:00)
[2022-10-25] MEDS: Sodium Bicarbonate Tab 325 MG TAB PO SCH ×3 (09:19→21:01)
[2022-10-25] MEDS: NIFEdipine XL 60 MG TAB PO SCH ×2 (09:19→21:01)
[2022-10-25] MEDS: Heparin 5,000 UNITS/ML VIAL SC SCH ×3 (09:20→21:01)
[2022-10-25] MEDS: Famotidine 20 MG TAB PO SCH (09:20)
[2022-10-25 10:11] LABS: Anion Gap 10 mmol/L (10-20); BUN (Urea Nitrogen) 35 mg/dL (9.8-20.1); Calc. Creatinine Clearance 39 mL/min (70-130); Carbon Dioxide 28 mmol/L (23-31); Chloride 100 mmol/L (98-107); Estimated GFR 17; Potassium 4.7 mmol/L (3.5-5.1); Sodium 133 mmol/L (136-145)
[2022-10-25 10:26] LABS: Glucose 499 mg/dL (80-115)
[2022-10-25] MEDS ORDERED: Sodium Chloride 0.9% 500 ML IV SCH (10:45)
[2022-10-25] MEDS ORDERED: HumuLIN 70/30 (300 UNITS/3 ML VIAL) SC SCH (16:30)
[2022-10-25] MEDS: Atorvastatin Calcium 40 MG TAB PO SCH (20:59)
[2022-10-25] MEDS: Gabapentin 300 MG CAP PO SCH (21:01)
[2022-10-25] MEDS: Acetaminophen 325 MG TAB PO PRN (21:03)
[2022-10-25] MEDS: Nitroglycerin 2% Ointment 1 INCH/1 GM Packet TOP PRN (22:19)
[2022-10-25 23:58] VITALS: TEMP 98.4
[2022-10-26 03:38] VITALS: BP 112/54
[2022-10-26] MEDS: hydrALAZINE 25 MG TAB PO SCH (06:27)
[2022-10-26] MEDS: Cephalexin 250 MG CAP PO SCH (06:27)
[2022-10-26] MEDS: Isosorbide Dinitrate 20 MG TAB PO SCH (06:27)
[2022-10-26] MEDS: HumaLOG 300 UNITS/3 ML VIAL SC PRN (06:29)
[2022-10-26] MEDS ORDERED: HumuLIN 70/30 (300 UNITS/3 ML VIAL) SC SCH (07:30)
== END 2022-10-26 08:00 | disposition left against medical advice (07) | DRG 291 ==
LOC: ERS 21:41 → 2NO 10-23 00:38
PROVIDERS: ADMIT Family Medicine; ATTEND Family Medicine
DX: I13.0 Hypertensive heart and chronic kidney disease with heart failure and stage 1 through stage 4 chronic kidney disease, or unspecified chronic kidney disease (principal); I50.33 Acute on chronic diastolic (congestive) heart failure; E87.20 Acidosis, unspecified; N17.9 Acute kidney failure, unspecified; Z68.43 Body mass index [BMI] 50.0-59.9, adult; I16.0 Hypertensive urgency; E66.01 Morbid (severe) obesity due to excess calories; I25.10 Atherosclerotic heart disease of native coronary artery without angina pectoris; N18.30 Chronic kidney disease, stage 3 unspecified; E11.65 Type 2 diabetes mellitus with hyperglycemia; R77.8 Other specified abnormalities of plasma proteins; E11.22 Type 2 diabetes mellitus with diabetic chronic kidney disease; Z91.199 Patient's noncompliance with other medical treatment and regimen due to unspecified reason; Z88.8 Allergy status to other drugs, medicaments and biological substances; Z79.899 Other long term (current) drug therapy; Z79.02 Long term (current) use of antithrombotics/antiplatelets; Z79.4 Long term (current) use of insulin; Z79.51 Long term (current) use of inhaled steroids; Z90.710 Acquired absence of both cervix and uterus; Z82.49 Family history of ischemic heart disease and other diseases of the circulatory system; Z95.5 Presence of coronary angioplasty implant and graft; Z83.3 Family history of diabetes mellitus; Z95.1 Presence of aortocoronary bypass graft
CPT/HCPCS: 36415; 36416; 71045; 74176; 80048; 80053; 80069; 81003; 81015; 82553; 82570; 83036; 83690; 83735; 83880; 84100; 84156; 84300; 84484; 84540; 85025; 85730; 93005; 93010; 93306; 97139; J0696; J1644; J1815; J1940; J2270; J2405; J7050; Q0162

== ENCOUNTER 2022-10-26 11:18 | Emergency (ER) | payer MEDICARE ==
[2022-10-26] MEDS ORDERED: Aspirin Chewable 81 MG TAB ONE (14:15)
[2022-10-26] MEDS ORDERED: Nitroglycerin 50 MG/250 ML BOT 0 ML ONE (14:15)
[2022-10-26] MEDS ORDERED: Nitroglycerin 0.4 MG TAB 1 EACH ONE (14:16)
[2022-10-26 14:17] LABS: #Monocytes 0.6 thou/uL (0.11-0.59); #Neutrophils 3.1 thou/uL (1.40-6.50); %Basophils 0.2 % (0.0-1.0); %Eosinophils 0.6 % (0.0-10.0); %Lymphocytes 21.1 % (21.0-51.0); %Neutrophils 66.1 % (42.0-75.0); Hemoglobin 10.6 g/dL (12.0-16.0); Mean Corpuscular HGB CONC 32.2 g/dL (32.0-36.0); Mean Corpuscular Hemoglobin 29.2 pg (27.0-31.0); Mean Corpuscular Volume 90.7 fl (78.0-98.0); Mean Platelet Volume 8.8 fL (7.4-10.4); Platelet Count 245 10x3/uL (130-400); RBC Distribution Width 13.9 % (11.5-14.5); Red Blood Cell (RBC) Count 3.64 mill/uL (4.20-5.40); White Blood Cell (WBC) Count 4.6 10x3/uL (4.8-10.8)
[2022-10-26 14:41] LABS: ALT (SGPT) 23 U/L (8-55); AST (SGOT) 22 U/L (5-34); Albumin 3.1 g/dL (3.4-4.8); Alkaline Phosphatase 67 U/L (40-110); Anion Gap 9 mmol/L (10-20); BUN (Urea Nitrogen) 38 mg/dL (9.8-20.1); Bilirubin, Total 0.3 mg/dL (0.2-1.2); Calc. Creatinine Clearance 0 mL/min (70-130); Calcium 9.3 mg/dL (7.8-10.44); Carbon Dioxide 29 mmol/L (23-31); Chloride 100 mmol/L (98-107); Estimated GFR 19; Globulin 2.5 g/dL (2.4-3.5); Potassium 4.2 mmol/L (3.5-5.1); Protein, Total 5.6 g/dL (5.8-8.1); Sodium 134 mmol/L (136-145)
[2022-10-26 14:51] LABS: Glucose 418 mg/dL (80-115)
[2022-10-26 15:01] LABS: CKMB 2.7 ng/mL (0-6.6)
[2022-10-26] MEDS ORDERED: Insulin Regular 300 UNITS/3 ML VIAL ONE (15:20)
== END 2022-10-26 16:23 | disposition left against medical advice (07) ==
LOC: ERS 11:18
DX: I21.4 Non-ST elevation (NSTEMI) myocardial infarction (principal); R06.02 Shortness of breath; D72.819 Decreased white blood cell count, unspecified; E11.9 Type 2 diabetes mellitus without complications; E78.5 Hyperlipidemia, unspecified; I10 Essential (primary) hypertension; Z87.891 Personal history of nicotine dependence; Z79.899 Other long term (current) drug therapy
CPT/HCPCS: 36415; 71045; 80053; 82553; 83605; 83880; 84484; 85025; 93005; J1815

== ENCOUNTER 2022-11-01 21:27 | Emergency (ER) | payer MEDICARE ==
[2022-11-01 22:15] LABS: #Lymphocytes 0.9 thou/uL (1.20-3.40); #Monocytes 0.7 thou/uL (0.11-0.59); #Neutrophils 3.5 thou/uL (1.40-6.50); %Eosinophils 0.4 % (0.0-10.0); %Lymphocytes 17.6 % (21.0-51.0); %Monocytes 13.3 % (0.0-10.0); %Neutrophils 68.8 % (42.0-75.0); Hemoglobin 10.5 g/dL (12.0-16.0); Mean Corpuscular HGB CONC 31.7 g/dL (32.0-36.0); Mean Corpuscular Hemoglobin 29.7 pg (27.0-31.0); Mean Corpuscular Volume 93.8 fl (78.0-98.0); Mean Platelet Volume 8.1 fL (7.4-10.4); Platelet Count 245 10x3/uL (130-400); RBC Distribution Width 14.9 % (11.5-14.5); Red Blood Cell (RBC) Count 3.55 mill/uL (4.20-5.40); White Blood Cell (WBC) Count 5.1 10x3/uL (4.8-10.8)
[2022-11-01 22:39] LABS: ALT (SGPT) 26 U/L (8-55); AST (SGOT) 17 U/L (5-34); Albumin 3.2 g/dL (3.4-4.8); Alkaline Phosphatase 68 U/L (40-110); Anion Gap 14 mmol/L (10-20); BUN (Urea Nitrogen) 52 mg/dL (9.8-20.1); Bilirubin, Total 0.2 mg/dL (0.2-1.2); CK (CPK) 144 U/L (29-168); Calc. Creatinine Clearance 0 mL/min (70-130); Calcium 8.9 mg/dL (7.8-10.44); Carbon Dioxide 23 mmol/L (23-31); Chloride 103 mmol/L (98-107); Estimated GFR 13; Globulin 2.5 g/dL (2.4-3.5); Glucose 382 mg/dL (80-115); Potassium 5.3 mmol/L (3.5-5.1); Protein, Total 5.7 g/dL (5.8-8.1); Sodium 135 mmol/L (136-145)
[2022-11-01 22:58] LABS: CKMB 2.6 ng/mL (0-6.6)
== END 2022-11-02 01:23 | disposition left against medical advice (07) ==
LOC: ERS 21:27
DX: Z53.21 Procedure and treatment not carried out due to patient leaving prior to being seen by health care provider (principal)
CPT/HCPCS: 36415; 71045; 80053; 82550; 82553; 84484; 85025; 93005; 94760

== ENCOUNTER 2022-11-07 19:55 | Inpatient (IN) | payer MEDICARE ==
[2022-11-07 21:38] LABS: ALT (SGPT) 23 U/L (8-55); AST (SGOT) 21 U/L (5-34); Albumin 3.1 g/dL (3.4-4.8); Alkaline Phosphatase 70 U/L (40-110); Anion Gap 13 mmol/L (10-20); BUN (Urea Nitrogen) 47 mg/dL (9.8-20.1); Bilirubin, Total 0.2 mg/dL (0.2-1.2); Calc. Creatinine Clearance 0 mL/min (70-130); Calcium 8.8 mg/dL (7.8-10.44); Carbon Dioxide 24 mmol/L (23-31); Chloride 108 mmol/L (98-107); Estimated GFR 18; Globulin 2.6 g/dL (2.4-3.5); Glucose 116 mg/dL (80-115); Potassium 4.9 mmol/L (3.5-5.1); Protein, Total 5.7 g/dL (5.8-8.1); Sodium 140 mmol/L (136-145)
[2022-11-07 21:58] LABS: CKMB 2.7 ng/mL (0-6.6)
[2022-11-07] MEDS ORDERED: Furosemide 40 MG/4 ML VIAL ONE (22:01)
[2022-11-07] MEDS ORDERED: Aspirin 325 MG TAB ONE (22:01)
[2022-11-07 22:02] LABS: #Lymphocytes 1.2 thou/uL (1.20-3.40); #Monocytes 0.7 thou/uL (0.11-0.59); #Neutrophils 3.8 thou/uL (1.40-6.50); %Basophils 0.6 % (0.0-1.0); %Eosinophils 0.9 % (0.0-10.0); %Lymphocytes 20.1 % (21.0-51.0); %Monocytes 12.2 % (0.0-10.0); %Neutrophils 66.1 % (42.0-75.0); Hemoglobin 10.4 g/dL (12.0-16.0); Mean Corpuscular HGB CONC 32.3 g/dL (32.0-36.0); Mean Corpuscular Hemoglobin 30.1 pg (27.0-31.0); Mean Corpuscular Volume 93.2 fl (78.0-98.0); Mean Platelet Volume 7.6 fL (7.4-10.4); Platelet Count 225 10x3/uL (130-400); Red Blood Cell (RBC) Count 3.45 mill/uL (4.20-5.40); White Blood Cell (WBC) Count 5.7 10x3/uL (4.8-10.8)
[2022-11-07] MEDS ORDERED: Ondansetron ODT 4 MG TAB PO PRN (22:47)
[2022-11-07] MEDS ORDERED: Dextrose 50% Abboject 50 ML SYRINGE SLOW IVP PRN (22:47)
[2022-11-07] MEDS ORDERED: Dextrose 5% in Water 1,000 ML IV PRN (22:47)
[2022-11-07] MEDS ORDERED: Calcium Carbonate 500 MG ChewTAB PO PRN (22:47)
[2022-11-07] MEDS ORDERED: Senokot S 8.6-50 MG TAB PO PRN (22:47)
[2022-11-08 00:35] LABS: Troponin I 0.039 ng/mL (< 0.028)
[2022-11-08 08:55] LABS: #Lymphocytes 1.3 thou/uL (1.20-3.40); #Monocytes 0.6 thou/uL (0.11-0.59); #Neutrophils 4.5 thou/uL (1.40-6.50); %Basophils 0.4 % (0.0-1.0); %Eosinophils 0.7 % (0.0-10.0); %Lymphocytes 20.3 % (21.0-51.0); %Monocytes 9.6 % (0.0-10.0); %Neutrophils 69.1 % (42.0-75.0); Hemoglobin 12.1 g/dL (12.0-16.0); Mean Corpuscular HGB CONC 31.5 g/dL (32.0-36.0); Mean Corpuscular Hemoglobin 29.3 pg (27.0-31.0); Mean Corpuscular Volume 93.1 fl (78.0-98.0); Mean Platelet Volume 7.7 fL (7.4-10.4); Platelet Count 242 10x3/uL (130-400); RBC Distribution Width 15.1 % (11.5-14.5); Red Blood Cell (RBC) Count 4.12 mill/uL (4.20-5.40); White Blood Cell (WBC) Count 6.5 10x3/uL (4.8-10.8)
[2022-11-08 09:17] LABS: Anion Gap 17 mmol/L (10-20); BUN (Urea Nitrogen) 44 mg/dL (9.8-20.1); Calc. Creatinine Clearance 0 mL/min (70-130); Calcium 9.5 mg/dL (7.8-10.44); Carbon Dioxide 24 mmol/L (23-31); Chloride 106 mmol/L (98-107); Estimated GFR 21; Potassium 4.6 mmol/L (3.5-5.1); Sodium 142 mmol/L (136-145)
[2022-11-08 09:24] LABS: Troponin I 0.039 ng/mL (< 0.028)
[2022-11-08 09:44] LABS: Glucose 46 mg/dL (80-115)
[2022-11-08] MEDS ORDERED: Aspirin Chewable 81 MG TAB ONE (10:02)
[2022-11-08] MEDS ORDERED: Furosemide 40 MG/4 ML VIAL ONE (10:02)
[2022-11-08] MEDS: Aspirin Chewable 81 MG TAB PO SCH (10:13)
[2022-11-08] MEDS: Amlodipine 10 MG TAB PO SCH (10:13)
[2022-11-08] MEDS: Ezetimibe 10 MG TAB PO SCH (10:13)
[2022-11-08] MEDS: Carvedilol 25 MG TAB PO SCH ×2 (10:13→20:39)
[2022-11-08] MEDS: hydrALAZINE 25 MG TAB PO SCH ×3 (10:13→20:39)
[2022-11-08] MEDS: Isosorbide Dinitrate 20 MG TAB PO SCH ×3 (10:14→20:39)
[2022-11-08] MEDS: Furosemide 40 MG/4 ML VIAL SLOW IVP SCH ×2 (10:15→12:31)
[2022-11-08] MEDS: Heparin 5,000 UNITS/ML VIAL SC SCH ×3 (10:24→20:39)
[2022-11-08 15:13] VITALS: BMI 40.2
[2022-11-08] MEDS ORDERED: Furosemide 40 MG/4 ML VIAL SLOW IVP SCH (18:00)
[2022-11-08] MEDS ORDERED: guaiFENesin ER 600 MG TAB PO PRN (18:14)
[2022-11-08] MEDS: Atorvastatin Calcium 40 MG TAB PO SCH (20:38)
[2022-11-08] MEDS: Gabapentin 300 MG CAP PO SCH (20:38)
[2022-11-08] MEDS: HumaLOG 300 UNITS/3 ML VIAL SC PRN (20:42)
[2022-11-08] MEDS: Acetaminophen 325 MG TAB PO PRN (22:00)
[2022-11-09 06:03] LABS: Anion Gap 13 mmol/L (10-20); BUN (Urea Nitrogen) 45 mg/dL (9.8-20.1); Calc. Creatinine Clearance 36 mL/min (70-130); Calcium 9.3 mg/dL (7.8-10.44); Carbon Dioxide 28 mmol/L (23-31); Chloride 102 mmol/L (98-107); Estimated GFR 21; Glucose 289 mg/dL (80-115); Magnesium 2.1 mg/dL (1.6-2.6); Sodium 138 mmol/L (136-145)
[2022-11-09] MEDS: Furosemide 40 MG/4 ML VIAL SLOW IVP SCH ×2 (06:25→14:50)
[2022-11-09] MEDS: HumaLOG 300 UNITS/3 ML VIAL SC PRN ×4 (06:25→21:05)
[2022-11-09] MEDS: Carvedilol 25 MG TAB PO SCH ×2 (08:33→21:02)
[2022-11-09] MEDS: hydrALAZINE 25 MG TAB PO SCH ×3 (08:33→21:02)
[2022-11-09] MEDS: Aspirin Chewable 81 MG TAB PO SCH (08:33)
[2022-11-09] MEDS: Ezetimibe 10 MG TAB PO SCH (08:33)
[2022-11-09] MEDS: Clopidogrel Bisulfate 75 MG TAB PO SCH (08:33)
[2022-11-09] MEDS: predniSONE 20 MG TAB PO SCH (08:33)
[2022-11-09] MEDS: Amlodipine 10 MG TAB PO SCH (08:33)
[2022-11-09] MEDS: Isosorbide Dinitrate 20 MG TAB PO SCH ×3 (08:34→21:03)
[2022-11-09] MEDS: Heparin 5,000 UNITS/ML VIAL SC SCH ×3 (08:36→21:03)
[2022-11-09 08:47] LABS: #Eosinphils 0.1 thou/uL (0.0-0.7); #Monocytes 0.6 thou/uL (0.11-0.59); #Neutrophils 5.2 thou/uL (1.40-6.50); %Basophils 0.3 % (0.0-1.0); %Eosinophils 1.4 % (0.0-10.0); %Lymphocytes 14.8 % (21.0-51.0); %Neutrophils 74.6 % (42.0-75.0); Hemoglobin 11.4 g/dL (12.0-16.0); Mean Corpuscular HGB CONC 32.4 g/dL (32.0-36.0); Mean Corpuscular Hemoglobin 29.5 pg (27.0-31.0); Mean Platelet Volume 7.7 fL (7.4-10.4); Platelet Count 220 10x3/uL (130-400); Red Blood Cell (RBC) Count 3.87 mill/uL (4.20-5.40); White Blood Cell (WBC) Count 6.9 10x3/uL (4.8-10.8)
[2022-11-09 08:57] LABS: Hemoglobin A1c 8.2 % (4.0-6.0)
[2022-11-09] MEDS ORDERED: hydrALAZINE 20 MG/ML VIAL SLOW IVP PRN (14:29)
[2022-11-09] MEDS ORDERED: cloNIDine 0.1 MG TAB PO SCH (15:00)
[2022-11-09] MEDS: cloNIDine 0.1 MG TAB PO SCH (16:25)
[2022-11-09] MEDS: Atorvastatin Calcium 40 MG TAB PO SCH (21:03)
[2022-11-09] MEDS: Gabapentin 300 MG CAP PO SCH (21:03)
[2022-11-10] MEDS: HumaLOG 300 UNITS/3 ML VIAL SC PRN ×4 (06:07→21:28)
[2022-11-10] MEDS: Furosemide 40 MG/4 ML VIAL SLOW IVP SCH ×2 (06:07→15:09)
[2022-11-10] MEDS ORDERED: Metolazone 5 MG TAB PO SCH (09:00)
[2022-11-10] MEDS: Heparin 5,000 UNITS/ML VIAL SC SCH ×3 (10:09→21:28)
[2022-11-10] MEDS: Isosorbide Dinitrate 20 MG TAB PO SCH ×3 (10:12→21:26)
[2022-11-10] MEDS: hydrALAZINE 25 MG TAB PO SCH ×3 (10:12→21:26)
[2022-11-10] MEDS: Amlodipine 10 MG TAB PO SCH (10:13)
[2022-11-10] MEDS: Carvedilol 25 MG TAB PO SCH ×2 (10:13→21:26)
[2022-11-10] MEDS: Famotidine 20 MG TAB PO SCH (10:13)
[2022-11-10] MEDS: Ezetimibe 10 MG TAB PO SCH (10:13)
[2022-11-10] MEDS: predniSONE 20 MG TAB PO SCH (10:13)
[2022-11-10] MEDS: Clopidogrel Bisulfate 75 MG TAB PO SCH (10:13)
[2022-11-10] MEDS: Aspirin Chewable 81 MG TAB PO SCH (10:13)
[2022-11-10 10:30] LABS: #Lymphocytes 1.1 thou/uL (1.20-3.40); #Monocytes 0.7 thou/uL (0.11-0.59); #Neutrophils 4.6 thou/uL (1.40-6.50); %Basophils 0.2 % (0.0-1.0); %Eosinophils 0.7 % (0.0-10.0); %Lymphocytes 17.5 % (21.0-51.0); %Neutrophils 70.7 % (42.0-75.0); Hemoglobin 10.5 g/dL (12.0-16.0); Mean Corpuscular HGB CONC 32.7 g/dL (32.0-36.0); Mean Corpuscular Hemoglobin 30.3 pg (27.0-31.0); Mean Corpuscular Volume 92.7 fl (78.0-98.0); Mean Platelet Volume 7.8 fL (7.4-10.4); Platelet Count 229 10x3/uL (130-400); RBC Distribution Width 14.9 % (11.5-14.5); Red Blood Cell (RBC) Count 3.48 mill/uL (4.20-5.40); White Blood Cell (WBC) Count 6.5 10x3/uL (4.8-10.8)
[2022-11-10 10:53] LABS: Phosphorus 3.3 mg/dL (2.3-4.7)
[2022-11-10 10:55] LABS: ALT (SGPT) 19 U/L (8-55); AST (SGOT) 16 U/L (5-34); Albumin 3.2 g/dL (3.4-4.8); Alkaline Phosphatase 73 U/L (40-110); Anion Gap 14 mmol/L (10-20); BUN (Urea Nitrogen) 43 mg/dL (9.8-20.1); Bilirubin, Total 0.4 mg/dL (0.2-1.2); Calc. Creatinine Clearance 37 mL/min (70-130); Calcium 9.4 mg/dL (7.8-10.44); Carbon Dioxide 30 mmol/L (23-31); Chloride 99 mmol/L (98-107); Estimated GFR 21; Globulin 2.8 g/dL (2.4-3.5); Glucose 354 mg/dL (80-115); Magnesium 2.1 mg/dL (1.6-2.6); Sodium 138 mmol/L (136-145)
[2022-11-10] MEDS: Acetaminophen 325 MG TAB PO PRN (11:05)
[2022-11-10] MEDS ORDERED: NPH, Human Insulin Isophane 300 UNITS/3 ML VIAL SC SCH (12:00)
[2022-11-10] MEDS ORDERED: Sodium Chloride 0.9% 500 ML IV SCH (14:00)
[2022-11-10] MEDS: cloNIDine 0.1 MG TAB PO SCH (17:28)
[2022-11-10] MEDS: Atorvastatin Calcium 40 MG TAB PO SCH (21:25)
[2022-11-10] MEDS: Gabapentin 300 MG CAP PO SCH (21:26)
[2022-11-10] MEDS: NPH, Human Insulin Isophane 300 UNITS/3 ML VIAL SC SCH (21:27)
[2022-11-11 05:11] LABS: #Lymphocytes 1.2 thou/uL (1.20-3.40); #Monocytes 0.6 thou/uL (0.11-0.59); #Neutrophils 4.2 thou/uL (1.40-6.50); %Basophils 0.2 % (0.0-1.0); %Eosinophils 0.6 % (0.0-10.0); %Lymphocytes 19.4 % (21.0-51.0); %Monocytes 10.2 % (0.0-10.0); %Neutrophils 69.6 % (42.0-75.0); Mean Corpuscular HGB CONC 32.8 g/dL (32.0-36.0); Mean Corpuscular Hemoglobin 30.2 pg (27.0-31.0); Mean Platelet Volume 7.6 fL (7.4-10.4); Platelet Count 224 10x3/uL (130-400); RBC Distribution Width 14.7 % (11.5-14.5); Red Blood Cell (RBC) Count 3.32 mill/uL (4.20-5.40); White Blood Cell (WBC) Count 6.1 10x3/uL (4.8-10.8)
[2022-11-11 05:34] LABS: Anion Gap 12 mmol/L (10-20); BUN (Urea Nitrogen) 44 mg/dL (9.8-20.1); Calc. Creatinine Clearance 40 mL/min (70-130); Calcium 9.1 mg/dL (7.8-10.44); Carbon Dioxide 30 mmol/L (23-31); Chloride 100 mmol/L (98-107); Estimated GFR 23; Glucose 228 mg/dL (80-115); Potassium 4.3 mmol/L (3.5-5.1); Sodium 138 mmol/L (136-145)
[2022-11-11] MEDS: HumaLOG 300 UNITS/3 ML VIAL SC PRN ×3 (05:45→21:06)
[2022-11-11] MEDS: Furosemide 40 MG/4 ML VIAL SLOW IVP SCH ×2 (05:45→14:11)
[2022-11-11] MEDS: Clopidogrel Bisulfate 75 MG TAB PO SCH (09:21)
[2022-11-11] MEDS: Isosorbide Dinitrate 20 MG TAB PO SCH ×3 (09:21→21:05)
[2022-11-11] MEDS: Famotidine 20 MG TAB PO SCH (09:21)
[2022-11-11] MEDS: Aspirin Chewable 81 MG TAB PO SCH (09:21)
[2022-11-11] MEDS: hydrALAZINE 25 MG TAB PO SCH ×3 (09:21→21:05)
[2022-11-11] MEDS: Carvedilol 25 MG TAB PO SCH ×2 (09:21→21:04)
[2022-11-11] MEDS: predniSONE 20 MG TAB PO SCH (09:21)
[2022-11-11] MEDS: Ezetimibe 10 MG TAB PO SCH (09:22)
[2022-11-11] MEDS: Heparin 5,000 UNITS/ML VIAL SC SCH ×3 (09:22→21:04)
[2022-11-11] MEDS: Insulin NPH Human Isophane 100 UNITS/ML (10 ML VIAL) SC SCH ×2 (10:04→21:05)
[2022-11-11] MEDS: NPH, Human Insulin Isophane 300 UNITS/3 ML VIAL SC SCH (10:04)
[2022-11-11] MEDS: cloNIDine 0.1 MG TAB PO SCH (17:51)
[2022-11-11] MEDS: Gabapentin 300 MG CAP PO SCH (21:04)
[2022-11-11] MEDS: Atorvastatin Calcium 40 MG TAB PO SCH (21:04)
[2022-11-12 04:43] LABS: #Lymphocytes 1.2 thou/uL (1.20-3.40); #Monocytes 0.9 thou/uL (0.11-0.59); #Neutrophils 4.8 thou/uL (1.40-6.50); %Basophils 0.3 % (0.0-1.0); %Eosinophils 0.6 % (0.0-10.0); %Lymphocytes 17.3 % (21.0-51.0); %Monocytes 12.7 % (0.0-10.0); %Neutrophils 69.1 % (42.0-75.0); Hemoglobin 10.7 g/dL (12.0-16.0); Mean Corpuscular HGB CONC 33.2 g/dL (32.0-36.0); Mean Corpuscular Hemoglobin 30.3 pg (27.0-31.0); Mean Corpuscular Volume 91.4 fl (78.0-98.0); Mean Platelet Volume 7.8 fL (7.4-10.4); Platelet Count 226 10x3/uL (130-400); RBC Distribution Width 14.7 % (11.5-14.5); Red Blood Cell (RBC) Count 3.54 mill/uL (4.20-5.40)
[2022-11-12 05:12] LABS: Anion Gap 14 mmol/L (10-20); BUN (Urea Nitrogen) 45 mg/dL (9.8-20.1); Calc. Creatinine Clearance 23 mL/min (70-130); Calcium 9.4 mg/dL (7.8-10.44); Carbon Dioxide 29 mmol/L (23-31); Chloride 99 mmol/L (98-107); Estimated GFR 22; Glucose 175 mg/dL (80-115); Magnesium 2.1 mg/dL (1.6-2.6); Potassium 4.2 mmol/L (3.5-5.1); Sodium 138 mmol/L (136-145)
[2022-11-12] MEDS: Furosemide 40 MG/4 ML VIAL SLOW IVP SCH (06:03)
[2022-11-12] MEDS: HumaLOG 300 UNITS/3 ML VIAL SC PRN (06:03)
[2022-11-12 07:39] VITALS: TEMP 98.5
[2022-11-12] MEDS: Clopidogrel Bisulfate 75 MG TAB PO SCH (08:47)
[2022-11-12] MEDS: hydrALAZINE 25 MG TAB PO SCH (08:47)
[2022-11-12] MEDS: Carvedilol 25 MG TAB PO SCH (08:47)
[2022-11-12] MEDS: predniSONE 20 MG TAB PO SCH (08:47)
[2022-11-12] MEDS: Ezetimibe 10 MG TAB PO SCH (08:47)
[2022-11-12] MEDS: Heparin 5,000 UNITS/ML VIAL SC SCH (08:47)
[2022-11-12] MEDS: Aspirin Chewable 81 MG TAB PO SCH (08:47)
[2022-11-12] MEDS: Famotidine 20 MG TAB PO SCH (08:47)
[2022-11-12] MEDS: Isosorbide Dinitrate 20 MG TAB PO SCH (08:49)
[2022-11-12] MEDS: Insulin NPH Human Isophane 100 UNITS/ML (10 ML VIAL) SC SCH (08:50)
[2022-11-12] MEDS ORDERED: Furosemide 40 MG TAB PO SCH (09:00)
[2022-11-12 11:37] VITALS: BP 133/69
== END 2022-11-12 12:17 | disposition home or self-care (01) | DRG 280 ==
LOC: ERS 19:55 → ERHOLD 23:00 → 2NO 11-08 14:50
PROVIDERS: ADMIT Student in an Organized Health Care Education/Training Program; ATTEND Internal Medicine
DX: I13.0 Hypertensive heart and chronic kidney disease with heart failure and stage 1 through stage 4 chronic kidney disease, or unspecified chronic kidney disease (principal); I21.A1 Myocardial infarction type 2; I50.33 Acute on chronic diastolic (congestive) heart failure; Z68.43 Body mass index [BMI] 50.0-59.9, adult; N17.9 Acute kidney failure, unspecified; I47.1 Supraventricular tachycardia; I25.10 Atherosclerotic heart disease of native coronary artery without angina pectoris; E66.01 Morbid (severe) obesity due to excess calories; I16.0 Hypertensive urgency; E11.649 Type 2 diabetes mellitus with hypoglycemia without coma; E78.5 Hyperlipidemia, unspecified; E11.22 Type 2 diabetes mellitus with diabetic chronic kidney disease; Z95.5 Presence of coronary angioplasty implant and graft; Z90.710 Acquired absence of both cervix and uterus; I25.2 Old myocardial infarction; Z88.8 Allergy status to other drugs, medicaments and biological substances; Z79.4 Long term (current) use of insulin; Z79.899 Other long term (current) drug therapy
CPT/HCPCS: 36415; 36416; 71045; 71250; 80048; 80053; 82553; 83036; 83735; 83880; 84100; 84145; 84443; 84484; 85025; 93005; 93306; 96374; 97139; J1644; J1815; J1940; J7050; J7512

== ENCOUNTER 2022-11-15 17:05 | Inpatient (IN) | payer MEDICARE ==
[2022-11-15 18:38] LABS: #Eosinphils 0.1 thou/uL (0.0-0.7); #Lymphocytes 0.9 thou/uL (1.20-3.40); #Monocytes 0.7 thou/uL (0.11-0.59); #Neutrophils 4.9 thou/uL (1.40-6.50); %Basophils 0.3 % (0.0-1.0); %Eosinophils 0.8 % (0.0-10.0); %Lymphocytes 13.6 % (21.0-51.0); %Monocytes 10.1 % (0.0-10.0); %Neutrophils 75.2 % (42.0-75.0); Hemoglobin 10.7 g/dL (12.0-16.0); Mean Corpuscular HGB CONC 32.9 g/dL (32.0-36.0); Mean Corpuscular Hemoglobin 30.2 pg (27.0-31.0); Mean Corpuscular Volume 91.9 fl (78.0-98.0); Mean Platelet Volume 7.8 fL (7.4-10.4); Platelet Count 216 10x3/uL (130-400); RBC Distribution Width 14.6 % (11.5-14.5); Red Blood Cell (RBC) Count 3.54 mill/uL (4.20-5.40); White Blood Cell (WBC) Count 6.6 10x3/uL (4.8-10.8)
[2022-11-15 19:01] LABS: ALT (SGPT) 19 U/L (8-55); AST (SGOT) 12 U/L (5-34); Albumin 3.2 g/dL (3.4-4.8); Alkaline Phosphatase 65 U/L (40-110); Anion Gap 15 mmol/L (10-20); BUN (Urea Nitrogen) 39 mg/dL (9.8-20.1); Bilirubin, Total 0.3 mg/dL (0.2-1.2); Calc. Creatinine Clearance 0 mL/min (70-130); Calcium 8.9 mg/dL (7.8-10.44); Carbon Dioxide 25 mmol/L (23-31); Chloride 99 mmol/L (98-107); Estimated GFR 21; Globulin 2.3 g/dL (2.4-3.5); Potassium 4.4 mmol/L (3.5-5.1); Protein, Total 5.5 g/dL (5.8-8.1); Sodium 135 mmol/L (136-145)
[2022-11-15 19:07] LABS: Glucose 446 mg/dL (80-115)
[2022-11-15 19:19] LABS: CKMB 2.1 ng/mL (0-6.6)
[2022-11-15] MEDS ORDERED: Aspirin Chewable 81 MG TAB ONE (20:36)
[2022-11-15] MEDS ORDERED: Furosemide 40 MG/4 ML VIAL ONE (20:36)
[2022-11-15] MEDS ORDERED: Acetaminophen 650 MG Suppository PR PRN (22:03)
[2022-11-15] MEDS ORDERED: Ondansetron ODT 4 MG TAB PO PRN (22:03)
[2022-11-15] MEDS ORDERED: Acetaminophen 325 MG TAB PO PRN (22:03)
[2022-11-15] MEDS ORDERED: Ondansetron PF 4 MG/2 ML Vial IVP PRN (22:03)
[2022-11-15] MEDS ORDERED: Dextrose 5% in Water 1,000 ML IV PRN ×2 (22:06→22:11)
[2022-11-15] MEDS ORDERED: HumaLOG 300 UNITS/3 ML VIAL SC PRN ×2 (22:06→22:11)
[2022-11-15] MEDS ORDERED: Dextrose 50% Abboject 50 ML SYRINGE SLOW IVP PRN ×2 (22:06→22:11)
[2022-11-15 22:26] LABS: Troponin I 0.048 ng/mL (< 0.028)
[2022-11-15 23:19] VITALS: BMI 54.6
[2022-11-15] MEDS ORDERED: Electrolyte Replacement Protocol 1 EACH FS SCH (23:45)
[2022-11-15] MEDS: HumaLOG 300 UNITS/3 ML VIAL SC PRN (23:53)
[2022-11-16 02:51] LABS: Anion Gap 12 mmol/L (10-20); BUN (Urea Nitrogen) 37 mg/dL (9.8-20.1); Calc. Creatinine Clearance 53 mL/min (70-130); Carbon Dioxide 29 mmol/L (23-31); Chloride 101 mmol/L (98-107); Estimated GFR 23; Glucose 351 mg/dL (80-115); Magnesium 2.1 mg/dL (1.6-2.6); Potassium 4.1 mmol/L (3.5-5.1); Sodium 138 mmol/L (136-145)
[2022-11-16 02:59] LABS: Hemoglobin 10.4 g/dL (12.0-16.0); Mean Corpuscular HGB CONC 32.5 g/dL (32.0-36.0); Mean Corpuscular Hemoglobin 29.8 pg (27.0-31.0); Mean Corpuscular Volume 91.4 fl (78.0-98.0); Mean Platelet Volume 7.7 fL (7.4-10.4); Platelet Count 206 10x3/uL (130-400); RBC Distribution Width 14.5 % (11.5-14.5); Red Blood Cell (RBC) Count 3.49 mill/uL (4.20-5.40); White Blood Cell (WBC) Count 6.8 10x3/uL (4.8-10.8)
[2022-11-16 03:00] LABS: Band 2 % (5-11); Eosinophils 1 % (0-10); Hypochromia SLIGHT = 6-15 cells (100X) (0-5/hpf); Lymphocytes 17 % (21-51); MDiff Complete? YES; Monocytes 19 % (0-10); Neutrophil 61 % (42-75); Platelet Morphology Comment Appears Adequate
[2022-11-16] MEDS ORDERED: hydrALAZINE 20 MG/ML VIAL SLOW IVP PRN (04:01)
[2022-11-16] MEDS: Furosemide 40 MG/4 ML VIAL SLOW IVP SCH ×3 (05:05→14:55)
[2022-11-16] MEDS: cloNIDine 0.1 MG TAB PO PRN ×2 (05:18→23:48)
[2022-11-16] MEDS ORDERED: Labetalol HCl 100 MG/20 ML VIAL SLOW IVP PRN (07:49)
[2022-11-16] MEDS ORDERED: predniSONE 20 MG TAB PO SCH (08:00)
[2022-11-16] MEDS: Ezetimibe 10 MG TAB PO SCH (08:55)
[2022-11-16] MEDS: hydrALAZINE 25 MG TAB PO SCH ×3 (08:55→19:58)
[2022-11-16] MEDS: Carvedilol 25 MG TAB PO SCH ×2 (08:55→19:59)
[2022-11-16] MEDS: Isosorbide Dinitrate 20 MG TAB PO SCH ×3 (08:55→19:59)
[2022-11-16] MEDS: Clopidogrel Bisulfate 75 MG TAB PO SCH (08:56)
[2022-11-16] MEDS: Aspirin Chewable 81 MG TAB PO SCH (08:56)
[2022-11-16] MEDS ORDERED: HumuLIN 70/30 (300 UNITS/3 ML VIAL) SC SCH ×2 (09:00→17:30)
[2022-11-16] MEDS ORDERED: Aspirin Chewable 81 MG TAB PO SCH (09:00)
[2022-11-16] MEDS ORDERED: Furosemide 40 MG/4 ML VIAL SLOW IVP SCH (18:00)
[2022-11-16] MEDS ORDERED: HumuLIN 70/30 100 Unit/ ml Vial SC SCH (18:15)
[2022-11-16] MEDS ORDERED: Atorvastatin Calcium 40 MG TAB PO SCH (21:00)
[2022-11-16] MEDS ORDERED: Gabapentin 300 MG CAP PO SCH (21:00)
[2022-11-16] MEDS: HumaLOG 300 UNITS/3 ML VIAL SC PRN (23:43)
[2022-11-17] MEDS: Furosemide 40 MG/4 ML VIAL SLOW IVP SCH (06:25)
[2022-11-17] MEDS ORDERED: HumuLIN 70/30 100 Unit/ ml Vial SC SCH ×2 (07:30→17:30)
[2022-11-17] MEDS ORDERED: HumuLIN 70/30 (300 UNITS/3 ML VIAL) SC SCH (07:30)
[2022-11-17] MEDS ORDERED: predniSONE 5 MG TAB PO SCH (08:00)
[2022-11-17] MEDS ORDERED: predniSONE 20 MG TAB PO SCH (08:00)
[2022-11-17 08:32] LABS: Anion Gap 12 mmol/L (10-20); BUN (Urea Nitrogen) 38 mg/dL (9.8-20.1); Calc. Creatinine Clearance 55 mL/min (70-130); Calcium 9.3 mg/dL (7.8-10.44); Carbon Dioxide 30 mmol/L (23-31); Chloride 101 mmol/L (98-107); Estimated GFR 26; Glucose 153 mg/dL (80-115); Potassium 3.9 mmol/L (3.5-5.1); Sodium 139 mmol/L (136-145)
[2022-11-17 08:41] VITALS: BP 158/70; TEMP 98.8
[2022-11-17] MEDS: Aspirin Chewable 81 MG TAB PO SCH (08:41)
[2022-11-17] MEDS: Ezetimibe 10 MG TAB PO SCH (08:41)
[2022-11-17] MEDS: hydrALAZINE 25 MG TAB PO SCH (08:41)
[2022-11-17] MEDS: Carvedilol 25 MG TAB PO SCH (08:41)
[2022-11-17] MEDS: Isosorbide Dinitrate 20 MG TAB PO SCH (08:42)
[2022-11-17] MEDS: Clopidogrel Bisulfate 75 MG TAB PO SCH (08:42)
== END 2022-11-17 10:50 | disposition home or self-care (01) | DRG 280 ==
LOC: ERS 17:05 → 2SW 20:59 → CCU 22:59 → OBSVTOIN 11-16 15:53
PROVIDERS: ADMIT Student in an Organized Health Care Education/Training Program; ATTEND Emergency Medicine
DX: I13.0 Hypertensive heart and chronic kidney disease with heart failure and stage 1 through stage 4 chronic kidney disease, or unspecified chronic kidney disease (principal); I21.A1 Myocardial infarction type 2; I50.33 Acute on chronic diastolic (congestive) heart failure; N18.4 Chronic kidney disease, stage 4 (severe); Z68.43 Body mass index [BMI] 50.0-59.9, adult; I16.0 Hypertensive urgency; E11.22 Type 2 diabetes mellitus with diabetic chronic kidney disease; D63.1 Anemia in chronic kidney disease; E66.01 Morbid (severe) obesity due to excess calories; E78.5 Hyperlipidemia, unspecified; Z95.1 Presence of aortocoronary bypass graft; I25.2 Old myocardial infarction; Z88.8 Allergy status to other drugs, medicaments and biological substances; Z79.4 Long term (current) use of insulin; Z79.899 Other long term (current) drug therapy; Z79.01 Long term (current) use of anticoagulants; Z79.82 Long term (current) use of aspirin; Z90.710 Acquired absence of both cervix and uterus; Z91.148 Patient's other noncompliance with medication regimen for other reason; Z98.890 Other specified postprocedural states
CPT/HCPCS: 36415; 36416; 71046; 80048; 80053; 82553; 83735; 83880; 84484; 85025; 93005; 93010; 96372; 96374; 96376; G0378; J0360; J1650; J1815; J1940; J7512

== ENCOUNTER 2022-11-20 09:45 | Observation (INO) | payer MEDICARE ==
[2022-11-20] MEDS ORDERED: Nitroglycerin 2% Ointment 1 INCH/1 GM Packet ONE (10:19)
[2022-11-20] MEDS ORDERED: Furosemide 40 MG/4 ML VIAL ONE (10:19)
[2022-11-20 10:48] LABS: #Eosinphils 0.1 thou/uL (0.0-0.7); #Lymphocytes 1.3 thou/uL (1.20-3.40); #Monocytes 0.9 thou/uL (0.11-0.59); #Neutrophils 6.9 thou/uL (1.40-6.50); %Basophils 0.1 % (0.0-1.0); %Eosinophils 0.6 % (0.0-10.0); %Lymphocytes 14.3 % (21.0-51.0); %Monocytes 10.3 % (0.0-10.0); %Neutrophils 74.7 % (42.0-75.0); Hemoglobin 10.9 g/dL (12.0-16.0); Mean Corpuscular Hemoglobin 30.4 pg (27.0-31.0); Mean Platelet Volume 7.9 fL (7.4-10.4); Platelet Count 228 10x3/uL (130-400); RBC Distribution Width 14.5 % (11.5-14.5); White Blood Cell (WBC) Count 9.2 10x3/uL (4.8-10.8)
[2022-11-20 10:51] LABS: Bacteria/HPF None Seen HPF (None Seen); Bilirubin Negative (Negative); Blood, Urine Negative (Negative); Clarity Clear (Clear); Glucose, Urine (Dipstick) Normal (Negative); Ketone, Urine Negative (Negative); Leukocyte Negative Leu/uL (Negative); Nitrite Negative (Negative); Protein, Urine (Dipstick) 70 mg/dL (Neg-Trace); RBC/HPF 0-3 HPF (0-3); Squamous Epithelial 0-3 HPF (0-3); Urobilinogen Normal mg/dL (Less than 2); WBC/HPF 0-3 HPF (0-3)
[2022-11-20 11:08] LABS: ALT (SGPT) 18 U/L (8-55); AST (SGOT) 18 U/L (5-34); Albumin 3.4 g/dL (3.4-4.8); Alkaline Phosphatase 63 U/L (40-110); Anion Gap 17 mmol/L (10-20); BUN (Urea Nitrogen) 49 mg/dL (9.8-20.1); Bilirubin, Total 0.3 mg/dL (0.2-1.2); Calc. Creatinine Clearance 0 mL/min (70-130); Carbon Dioxide 25 mmol/L (23-31); Chloride 106 mmol/L (98-107); Estimated GFR 24; Globulin 2.5 g/dL (2.4-3.5); Glucose 68 mg/dL (80-115); Potassium 4.2 mmol/L (3.5-5.1); Protein, Total 5.9 g/dL (5.8-8.1); Sodium 144 mmol/L (136-145)
[2022-11-20 11:31] LABS: CKMB 2.6 ng/mL (0-6.6)
[2022-11-20] MEDS ORDERED: Ondansetron PF 4 MG/2 ML Vial IVP PRN (14:52)
[2022-11-20] MEDS ORDERED: Acetaminophen 325 MG TAB PO PRN (14:52)
[2022-11-20] MEDS ORDERED: Ondansetron ODT 4 MG TAB PO PRN (14:52)
[2022-11-20] MEDS ORDERED: Insulin Regular 300 UNITS/3 ML VIAL SC PRN (15:52)
[2022-11-20] MEDS ORDERED: Dextrose 5% in Water 1,000 ML IV PRN (15:52)
[2022-11-20] MEDS ORDERED: Dextrose 50% Abboject 50 ML SYRINGE SLOW IVP PRN (15:52)
[2022-11-20 16:09] VITALS: BMI 53.7
[2022-11-20] MEDS ORDERED: hydrALAZINE 25 MG TAB PO SCH (16:15)
[2022-11-20] MEDS: Heparin 5,000 UNITS/ML VIAL SC SCH ×2 (16:21→19:59)
[2022-11-20] MEDS: Isosorbide Dinitrate 20 MG TAB PO SCH ×2 (16:21→20:00)
[2022-11-20 17:01] LABS: Troponin I 0.055 ng/mL (< 0.028)
[2022-11-20] MEDS: Nitroglycerin 2% Ointment 1 INCH/1 GM Packet TOP SCH (18:54)
[2022-11-20] MEDS: Insulin Regular 300 UNITS/3 ML VIAL SC PRN (18:59)
[2022-11-20 19:55] LABS: Troponin I 0.044 ng/mL (< 0.028)
[2022-11-20] MEDS: Carvedilol 25 MG TAB PO SCH (19:59)
[2022-11-20] MEDS: Furosemide 40 MG/4 ML VIAL SLOW IVP SCH (19:59)
[2022-11-20] MEDS: hydrALAZINE 25 MG TAB PO SCH (20:00)
[2022-11-20] MEDS ORDERED: Atorvastatin Calcium 40 MG TAB PO SCH (21:00)
[2022-11-20] MEDS ORDERED: Gabapentin 300 MG CAP PO SCH (21:00)
[2022-11-21] MEDS: Nitroglycerin 2% Ointment 1 INCH/1 GM Packet TOP SCH (05:33)
[2022-11-21] MEDS: Insulin Regular 300 UNITS/3 ML VIAL SC PRN (05:33)
[2022-11-21] MEDS: Isosorbide Dinitrate 20 MG TAB PO SCH (08:25)
[2022-11-21] MEDS: Carvedilol 25 MG TAB PO SCH (08:26)
[2022-11-21] MEDS: Furosemide 40 MG/4 ML VIAL SLOW IVP SCH (08:26)
[2022-11-21] MEDS: Heparin 5,000 UNITS/ML VIAL SC SCH (08:26)
[2022-11-21] MEDS: hydrALAZINE 25 MG TAB PO SCH (08:26)
[2022-11-21 08:30] VITALS: BP 186/85; TEMP 98.3
[2022-11-21 08:33] LABS: #Eosinphils 0.1 thou/uL (0.0-0.7); #Lymphocytes 1.3 thou/uL (1.20-3.40); #Monocytes 0.8 thou/uL (0.11-0.59); #Neutrophils 5.6 thou/uL (1.40-6.50); %Eosinophils 0.9 % (0.0-10.0); %Lymphocytes 16.9 % (21.0-51.0); %Monocytes 10.4 % (0.0-10.0); %Neutrophils 71.8 % (42.0-75.0); Hemoglobin 9.9 g/dL (12.0-16.0); Mean Corpuscular HGB CONC 30.6 g/dL (32.0-36.0); Mean Corpuscular Hemoglobin 28.5 pg (27.0-31.0); Mean Corpuscular Volume 93.2 fl (78.0-98.0); Mean Platelet Volume 7.8 fL (7.4-10.4); Platelet Count 224 10x3/uL (130-400); RBC Distribution Width 14.6 % (11.5-14.5); Red Blood Cell (RBC) Count 3.47 mill/uL (4.20-5.40); White Blood Cell (WBC) Count 7.7 10x3/uL (4.8-10.8)
[2022-11-21 08:58] LABS: Anion Gap 14 mmol/L (10-20); BUN (Urea Nitrogen) 50 mg/dL (9.8-20.1); Calc. Creatinine Clearance 52 mL/min (70-130); Calcium 8.9 mg/dL (7.8-10.44); Carbon Dioxide 26 mmol/L (23-31); Chloride 103 mmol/L (98-107); Estimated GFR 23; Glucose 171 mg/dL (80-115); Sodium 139 mmol/L (136-145)
[2022-11-21] MEDS ORDERED: HumuLIN 70/30 (300 UNITS/3 ML VIAL) SC SCH (09:00)
[2022-11-21] MEDS ORDERED: Ezetimibe 10 MG TAB PO SCH (09:00)
[2022-11-21] MEDS ORDERED: Aspirin Chewable 81 MG TAB PO SCH (09:00)
[2022-11-21] MEDS ORDERED: Clopidogrel Bisulfate 75 MG TAB PO SCH (09:00)
== END 2022-11-21 12:15 | disposition home or self-care (01) ==
LOC: ERS 09:45 → 2SW 12:52
PROVIDERS: ADMIT Family Medicine; ATTEND Family Medicine
DX: I13.0 Hypertensive heart and chronic kidney disease with heart failure and stage 1 through stage 4 chronic kidney disease, or unspecified chronic kidney disease (principal); E11.22 Type 2 diabetes mellitus with diabetic chronic kidney disease; N18.4 Chronic kidney disease, stage 4 (severe); I50.33 Acute on chronic diastolic (congestive) heart failure; I25.10 Atherosclerotic heart disease of native coronary artery without angina pectoris; G47.33 Obstructive sleep apnea (adult) (pediatric); E78.5 Hyperlipidemia, unspecified; I25.2 Old myocardial infarction; M79.604 Pain in right leg; M79.605 Pain in left leg; E66.01 Morbid (severe) obesity due to excess calories; Z68.43 Body mass index [BMI] 50.0-59.9, adult; Z91.148 Patient's other noncompliance with medication regimen for other reason; Z79.02 Long term (current) use of antithrombotics/antiplatelets; Z79.4 Long term (current) use of insulin; Z79.82 Long term (current) use of aspirin; Z79.899 Other long term (current) drug therapy; Z88.6 Allergy status to analgesic agent; Z88.8 Allergy status to other drugs, medicaments and biological substances; Z95.1 Presence of aortocoronary bypass graft; Z95.5 Presence of coronary angioplasty implant and graft
CPT/HCPCS: 36415; 36416; 71045; 80048; 80053; 81003; 81015; 82553; 83735; 83880; 84484; 85025; 85379; 93005; 93970; 94760; 96372; 96374; 96376; 97139; G0378; J1644; J1815; J1940